=== PATIENT | male | born 1965 | race Caucasian/White ===

== ENCOUNTER 2022-08-17 20:49 | Emergency (ER) | payer MEDICAID ==
[~2022-08-17] VITALS: Ht 167.6 cm; Wt 80.0 kg
[2022-08-17 22:30] LABS: BASOPHILS % 0.2 % (0.0-2.0); HEMATOCRIT. 40.3 % (42.0-52.0); HEMOGLOBIN. 14.1 g/dL (14.0-18.0); LYMPHOCYTES % 11.8 % (20.0-50.0); MEAN CORPUSCULAR HEMOGLOBIN 31.7 pg (28.0-32.0); MEAN CORPUSCULAR VOLUME 90.1 fL (80.0-94.0); MEAN PLATELET VOLUME 7.5 fl (7.4-10.4); MONOCYTES % 5.7 % (2.0-8.0); NEUTROPHILS % 82.3 % (40.0-76.0); PLATELET 258 x1000/uL (130-400); RED BLOOD CELL COUNT 4.47 mill/uL (4.7-6.1); RED CELL DISTRIBUTION WIDTH 14.1 % (11.6-14.6)
[2022-08-17 22:32] LABS: CHLORIDE 101 mEq/L (98-107)
[2022-08-17 22:38] LABS: PROTHROMBIN TIME 11.1 sec (9.6-11.0)
[2022-08-17 22:48] LABS: ETHANOL BLOOD < 10 mg/dL
[2022-08-17] MEDS ORDERED: LORAZEPAM 1MG TABLET PO NR (23:15)
[2022-08-18 03:08] VITALS: BP 152/85
== END 2022-08-18 03:09 | disposition home or self-care (01) ==
LOC: ER 20:49
DX: F41.9 Anxiety disorder, unspecified (principal); R11.2 Nausea with vomiting, unspecified; R10.9 Unspecified abdominal pain; E11.9 Type 2 diabetes mellitus without complications; I10 Essential (primary) hypertension; Z79.84 Long term (current) use of oral hypoglycemic drugs
CPT/HCPCS: 36415; 71045; 80053; 80320; 83690; 83880; 84484; 85025; 85610; 93005; 99285; Z7610; G0480